=== PATIENT | female | born 1990 | race Caucasian/White ===

== ENCOUNTER 2018-01-12 21:00 | Day surgery (SDC) | payer BC ==
[2018-01-12 21:34] VITALS: BP 119/78; TEMP 98.2; BMI 29.7
--- NOTE | 2018-01-12 21:47 | PDOC.LDHP ---
Labor and Delivery H&P HPI: Patient of Dr ruff here for CTX, was 3 cm last check on Saturday HPI: 27 yo at 37 weeks 2 days with irregular CTX, no VB, no LOF, no CONTRERAS, good FM. Denies recent trauma or issues. Review of systems: complete ROS done and negative as per HPI Current gestational age (weeks): 37 (2 Days) Dating criteria: last menstrual period Grav: 2 Para: 0 Current complications: none Abnormal US findings: No Current medications: pre- vitamins Previous surgical history: none Allergies/Adverse Reactions: Allergies Allergy/AdvReac Type Severity Reaction Status Date / Time No Known Drug Allergies Allergy Verified 01/12/18 21:25 Social history: none - Physical Exam Vital signs reviewed and normal: yes (119/78) General: NAD Heart: RRR Lungs: CTAB Abdomen: gravid FHT: category 1 [place] contractions every: CTX about every 5-7 minutes - Vaginal Exam cm dilated: 3 Effacement: 75% Station: 0 - Assessment Latent phase in early term, GBS negative - Plan Plan: observation in L&D (Obs for 2 hrs If no change (no change from Last Saturday - 3 days ago)...home with F/U as scheduled Saturday Pain meds prn)
[2018-01-12] MEDS ORDERED: Butorphanol Tartrate 1 MG/ML VIAL SLOW IVP PRN (21:48)
[2018-01-12] MEDS ORDERED: Promethazine HCl 25 MG/ML VIAL IM/IV PRN (21:49)
--- NOTE | 2018-01-13 00:06 | PDOC.EVN ---
Event Note - Event Note Event Note: No cervical change in 2 hrs. Recommend recheck in office today Saturday.
== END 2018-01-13 00:12 | disposition home or self-care (01) ==
LOC: L&D/OP 21:00
PROVIDERS: ATTEND Obstetrics & Gynecology
DX: O47.1 False labor at or after 37 completed weeks of gestation (principal); Z3A.37 37 weeks gestation of pregnancy
CPT/HCPCS: 99283

== ENCOUNTER 2018-01-14 11:26 | Inpatient (IN) | payer BC ==
[2018-01-14] MEDS: Lactated Ringer's 1,000 ML IV SCH ×3 (12:01→17:23)
[2018-01-14 12:16] VITALS: BMI 29.6
[2018-01-14 12:43] LABS: Hemoglobin 13.2 g/dL (12.0-16.0); Mean Corpuscular HGB CONC 33.7 g/dL (32.0-36.0); Mean Corpuscular Hemoglobin 32.7 pg (27.0-31.0); Mean Platelet Volume 7.4 fL (7.4-10.4); Platelet Count 247 thou/uL (130-400); RBC Distribution Width 12.3 % (11.5-14.5); Red Blood Cell (RBC) Count 4.03 mill/uL (4.20-5.40)
[2018-01-14] MEDS ORDERED: Misoprostol 200 MCG TAB PR PRN (12:59)
[2018-01-14] MEDS ORDERED: Methylergonovine 0.2 MG/ML VIAL IM PRN (12:59)
[2018-01-14] MEDS ORDERED: NS / Oxytocin 40 units/1000ml 1,000 ML IV PRN (12:59)
[2018-01-14] MEDS ORDERED: Ibuprofen 800 MG TAB PO PRN (12:59)
[2018-01-14] MEDS ORDERED: Carboprost 250 MCG/ML AMP IM PRN (12:59)
[2018-01-14] MEDS ORDERED: Butorphanol Tartrate 1 MG/ML VIAL SLOW IVP PRN (12:59)
[2018-01-14] MEDS ORDERED: Promethazine HCl 25 MG/ML VIAL IM PRN ×2 (12:59→17:44)
[2018-01-14] MEDS ORDERED: Lidocaine 1% (PF) 30 ML VIAL SC PRN (12:59)
[2018-01-14] MEDS ORDERED: Acetaminophen 500 MG TAB PO PRN (12:59)
[2018-01-14] MEDS ORDERED: Ondansetron HCl/PF 4 MG/2 ML Vial IVP PRN ×3 (12:59→20:56)
[2018-01-14] MEDS ORDERED: HYDROcodone/Acetaminophen 5/325 mg Tablet PO PRN ×2 (12:59)
[2018-01-14] MEDS ORDERED: Diphenoxylate HCl/Atropine Tablet PO PRN ×2 (12:59)
[2018-01-14 13:17] LABS: Syphilis Antibody Nonreactive (Nonreactive); Syphilis Antibody Index 0.03 S/CO (<1.00 Non-Reactive)
[2018-01-14 13:28] LABS: HBSAg Index 0.17 S/CO (0-0.99); HIV (1/2) Antibody/Antigen Non-Reactive (NonReactive); Hep B Surf Ag Non-Reactive S/CO (NonReactive)
[2018-01-14] MEDS ORDERED: Fentanyl 4 mcg/Bup 0.1% Cadd 100 ML ONE (14:52)
[2018-01-14] MEDS ORDERED: NS / Oxytocin 40 units/1000ml 1,000 ML IV SCH ×2 (17:30→21:00)
[2018-01-14] MEDS ORDERED: Eucerin (Mineral Oil/Petrolatum,White) 30 gm Jar TOP PRN (17:44)
[2018-01-14] MEDS ORDERED: Lactated Ringer's 500 ML IV PRN (17:44)
[2018-01-14] MEDS ORDERED: NS w/ Oxytocin 10 units 500 ML ONE (17:44)
[2018-01-14] MEDS ORDERED: ePHEDrine/0.9% NaCl/PF SYRINGE 50 mg/10 ml SLOW IVP PRN (17:44)
[2018-01-14] MEDS ORDERED: Acetaminophen 325 MG TAB PO PRN (17:44)
[2018-01-14] MEDS ORDERED: Naloxone HCl 0.4 mg/ml Vial IVP PRN ×2 (17:44)
[2018-01-14] MEDS ORDERED: diphenhydrAMINE 50 MG/ML VIAL IVP PRN (17:44)
[2018-01-14] MEDS ORDERED: Fentanyl 4 mcg/Bupivacaine 0.1% Cassette 100 ML EPIDURAL SCH (17:45)
[2018-01-14] MEDS ORDERED: Communication Order-Pharmacy FS SCH (17:45)
[2018-01-14] MEDS ORDERED: Lidocaine 1% (PF) 30 ML VIAL ONE (20:03)
[2018-01-14] MEDS ORDERED: Lanolin Ointment 7 GM TUBE TOP PRN (20:56)
[2018-01-14] MEDS ORDERED: Adacel (T-DAP) 0.5 ML VIAL IM ONE (20:56)
[2018-01-14] MEDS ORDERED: Misoprostol 200 MCG TAB VAG PRN (20:56)
[2018-01-14] MEDS ORDERED: Milk Of Magnesia 30 ML UDCUP PO PRN (20:56)
[2018-01-14] MEDS ORDERED: Zolpidem Tartrate 5 MG TAB PO PRN (20:56)
[2018-01-14] MEDS ORDERED: Bisacodyl 10 MG SUPP PR PRN (20:56)
[2018-01-14] MEDS ORDERED: diphenhydrAMINE 25 MG CAP PO PRN (20:56)
[2018-01-14] MEDS ORDERED: Acetaminophen/Codeine 30-300mg Tablet PO PRN (20:56)
[2018-01-14] MEDS: Ibuprofen 800 MG TAB PO SCH (22:48)
[2018-01-15] MEDS: Acetaminophen/Codeine 30-300mg Tablet PO PRN ×3 (01:34→21:03)
[2018-01-15] MEDS: Ibuprofen 800 MG TAB PO SCH ×3 (05:42→21:04)
[2018-01-15 06:17] LABS: Hemoglobin 12.2 g/dL (12.0-16.0); Mean Corpuscular HGB CONC 33.6 g/dL (32.0-36.0); Mean Corpuscular Hemoglobin 33.1 pg (27.0-31.0); Mean Corpuscular Volume 98.5 fL (78.0-98.0); Mean Platelet Volume 7.9 fL (7.4-10.4); Platelet Count 217 thou/uL (130-400); RBC Distribution Width 12.4 % (11.5-14.5); Red Blood Cell (RBC) Count 3.69 mill/uL (4.20-5.40); White Blood Cell (WBC) Count 10.7 thou/uL (4.8-10.8)
[2018-01-15] MEDS: Ferrous Sulfate 325 MG TAB PO SCH ×2 (07:41→17:24)
[2018-01-15] MEDS: Docusate Calcium (SURFAK) 240 MG CAP PO SCH ×2 (08:29→21:04)
[2018-01-15] MEDS: Prenatal Vitamin 1 TAB PO SCH (08:29)
[2018-01-16] MEDS: Ibuprofen 800 MG TAB PO SCH (06:06)
[2018-01-16 07:43] VITALS: BP 102/52; TEMP 97.9
[2018-01-16] MEDS: Prenatal Vitamin 1 TAB PO SCH (08:41)
[2018-01-16] MEDS: Docusate Calcium (SURFAK) 240 MG CAP PO SCH (08:41)
[2018-01-16] MEDS: Ferrous Sulfate 325 MG TAB PO SCH (08:41)
== END 2018-01-16 11:15 | disposition home or self-care (01) | DRG 807 ==
LOC: L&D 11:26 → 3SW 23:30
PROVIDERS: ADMIT Obstetrics & Gynecology; ATTEND Obstetrics & Gynecology
PROC: 10907ZC Drainage of Amniotic Fluid, Therapeutic from Products of Conception, Via Natural or Artificial Opening (ICD-10-PCS; principal; 2018-01-14)
PROC: 10E0XZZ Delivery of Products of Conception, External Approach (ICD-10-PCS; 2018-01-14)
PROC: 0W8NXZZ Division of Female Perineum, External Approach (ICD-10-PCS; 2018-01-14)
DX: O70.0 First degree perineal laceration during delivery (principal); Z37.0 Single live birth; Z3A.37 37 weeks gestation of pregnancy
CPT/HCPCS: 36415; 51702; 85027; 86780; 86850; 86900; 86901; 87340; 87389; 99283; J2001; J2405

== ENCOUNTER 2023-03-05 10:23 | Emergency (ER) | payer BC | END 2023-03-05 11:20 | disposition home or self-care (01) | LOC: ERS 10:23 | DX: R55 Syncope and collapse (principal); R00.0 Tachycardia, unspecified | CPT/HCPCS: 36416 ==